=== PATIENT | male | born 1980 | race Caucasian/White ===

== ENCOUNTER 2021-11-08 15:11 | Observation (INO) | payer OTHER ==
[2021-11-08 15:33] LABS: Basophils # (A) 0.1 k/uL (0-0.2); Basophils % (A) 1 %; Eosinophils # (A) 0.3 k/uL (0-0.7); Eosinophils % (A) 2 %; HCT 50.8 % (39.0-53.0); HGB 17.3 gm/dL (13.0-17.5); Lymphocytes % (A) 17 %; MCH 31.6 pg (25.0-35.0); MCHC 34.1 g/dL (31.0-37.0); MCV 92.5 fL (80.0-100.0); Mean Platelet Volume 7.5; Monocytes # (A) 0.7 k/uL (0-1.0); Monocytes % (A) 6 %; Neutrophils # (A) 8.9 k/uL (1.3-7.7); Neutrophils % (A) 73 %; Platelet Count 361 k/uL (150-450); RBC 5.49 m/uL (4.30-5.90); RDW 13.6 % (11.5-15.5); WBC 12.1 k/uL (3.8-10.6)
--- NOTE | 2021-11-08 15:38 | ED ---
General Adult HPI - General Stated complaint: chest pain Time Seen by Provider: 11/08/21 15:13 Source: patient, RN notes reviewed, old records reviewed - History of Present Illness Initial comments: 40-year-old male presents for episode of chest pain and brief loss consciousness. Patient has history of hypertrophic cardiomyopathy. He is being followed at the [facility]. He is awaiting possible myomectomy and defibrillator placement. He is on beta blockers and losartan for blood pressure control. 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 He states he had 4 brief episodes of chest pain which were resolved at the time of EMS arrival. He states he was told that he lost consciousness briefly a few seconds only. He denies current chest pain. Denies cough or fever. - Related Data Allergies Allergy/AdvReac Type Severity Reaction Status Date / Time No Known Allergies Allergy Verified 11/08/21 16:44 Review of Systems ROS Statement: Those systems with pertinent positive or pertinent negative responses have been documented in the HPI. ROS Other: All systems not noted in ROS Statement are negative. General Exam General appearance: alert, in no apparent distress, appears intoxicated Head exam: Present: atraumatic, normocephalic Eye exam: Present: normal appearance, PERRL ENT exam: Present: normal exam Neck exam: Present: normal inspection. Absent: tenderness Respiratory exam: Present: normal lung sounds bilaterally. Absent: respiratory distress, wheezes Cardiovascular Exam: Present: regular rate, normal rhythm, systolic murmur ( pansystolic murmur) GI/Abdominal exam: Present: soft. Absent: distended, tenderness, guarding Extremities exam: Present: normal inspection, normal capillary refill. Absent: pedal edema Neurological exam: Present: alert, oriented X3, CN II-XII intact. Absent: motor sensory deficit Psychiatric exam: Present: flat affect Skin exam: Present: warm, dry, intact. Absent: cyanosis, diaphoretic Course Vital Signs 11/08/21 15:27 Temperature 98.8 F Pulse Rate 70 Respiratory 18 Rate Blood Pressure 112/73 O2 Sat by Pulse 94 L Oximetry EKG Findings - EKG Comments: EKG Findings:: EKG: Sinus rhythm, left. T-wave inversion in aVL ventricular rate 67, FL interval 200, QRS duration 106. T wave inversion in the lateral precordial leads. Medical Decision Making - Medical Decision Making 40-year-old male presenting with a brief episode of chest pain. Pain was atypical lasting just a second anterior chest pain. He then momentary loss consciousness. He does have history of hypertrophic cardiomyopathy. Patient has EKG showing ST segment elevation in V1 and V2 consistent with hypertrophic cardiomyopathy. He is chest pain-free at the time my evaluation. Workup reveals normal CBC, normal CMP, initial troponin of 0.072. He has an elevated BNP at 5000. He is given aspirin and started on heparin. I did discuss case with both the admitting physician Dr. Fuentes and loan auditor Dr. Mcmillan. Dr. Mcmillan recommends normal saline at 75 ML's per hour as well as continuing the patient's beta dwight. Echo will be obtained. Serial cardiac enzymes will be obtained. - Lab Data Result diagrams: 11/08/21 15:19 11/08/21 15:19 Lab Results 11/08/21 11/08/21 11/08/21 Range/Units 15:19 15:19 15:19 WBC 12.1 H (3.8-10.6) k/uL RBC 5.49 (4.30-5.90) m/uL Hgb 17.3 (13.0-17.5) gm/dL Hct 50.8 (39.0-53.0) % MCV 92.5 (80.0-100.0) fL MCH 31.6 (25.0-35.0) pg MCHC 34.1 (31.0-37.0) g/dL RDW 13.6 (11.5-15.5) % Plt Count 361 (150-450) k/uL MPV 7.5 Neutrophils % 73 % Lymphocytes % 17 % Monocytes % 6 % Eosinophils % 2 % Basophils % 1 % Neutrophils # 8.9 H (1.3-7.7) k/uL Lymphocytes # 2.0 (1.0-4.8) k/uL Monocytes # 0.7 (0-1.0) k/uL Eosinophils # 0.3 (0-0.7) k/uL Basophils # 0.1 (0-0.2) k/uL PT 10.7 (9.0-12.0) sec INR 1.0 (<1.2) APTT 26.4 (22.0-30.0) sec Sodium 135 L (137-145) mmol/L Potassium 4.4 (3.5-5.1) mmol/L Chloride 103 (98-107) mmol/L Carbon Dioxide 24 (22-30) mmol/L Anion Gap 8 mmol/L BUN 17 (9-20) mg/dL Creatinine 1.14 (0.66-1.25) mg/dL Est GFR (CKD-EPI)AfAm >90 (>60 ml/min/1.73 sqM) Est GFR (CKD-EPI)NonAf 82 (>60 ml/min/1.73 sqM) Glucose 158 H (74-99) mg/dL Calcium 9.3 (8.4-10.2) mg/dL Magnesium 1.7 (1.6-2.3) mg/dL Total Bilirubin 0.5 (0.2-1.3) mg/dL AST 25 (17-59) U/L ALT 18 (4-49) U/L Alkaline Phosphatase 102 (38-126) U/L Troponin I (0.000-0.034) ng/mL NT-Pro-B Natriuret Pep pg/mL Total Protein 6.8 (6.3-8.2) g/dL Albumin 3.4 L (3.5-5.0) g/dL Lipase 104 (23-300) U/L 11/08/21 11/08/21 Range/Units 15:19 15:19 WBC (3.8-10.6) k/uL RBC (4.30-5.90) m/uL Hgb (13.0-17.5) gm/dL Hct (39.0-53.0) % MCV (80.0-100.0) fL MCH (25.0-35.0) pg MCHC (31.0-37.0) g/dL RDW (11.5-15.5) % Plt Count (150-450) k/uL MPV Neutrophils % % Lymphocytes % % Monocytes % % Eosinophils % % Basophils % % Neutrophils # (1.3-7.7) k/uL Lymphocytes # (1.0-4.8) k/uL Monocytes # (0-1.0) k/uL Eosinophils # (0-0.7) k/uL Basophils # (0-0.2) k/uL PT (9.0-12.0) sec INR (<1.2) APTT (22.0-30.0) sec Sodium (137-145) mmol/L Potassium (3.5-5.1) mmol/L Chloride (98-107) mmol/L Carbon Dioxide (22-30) mmol/L Anion Gap mmol/L BUN (9-20) mg/dL Creatinine (0.66-1.25) mg/dL Est GFR (CKD-EPI)AfAm (>60 ml/min/1.73 sqM) Est GFR (CKD-EPI)NonAf (>60 ml/min/1.73 sqM) Glucose (74-99) mg/dL Calcium (8.4-10.2) mg/dL Magnesium (1.6-2.3) mg/dL Total Bilirubin (0.2-1.3) mg/dL AST (17-59) U/L ALT (4-49) U/L Alkaline Phosphatase (38-126) U/L Troponin I 0.072 H* (0.000-0.034) ng/mL NT-Pro-B Natriuret Pep 5240 pg/mL Total Protein (6.3-8.2) g/dL Albumin (3.5-5.0) g/dL Lipase (23-300) U/L Critical Care Time Total Critical Care Time: 35 Disposition Clinical Impression: Hypertrophic cardiomyopathy, Elevated troponin I level Disposition: ADMITTED IP TO THIS [facility] Condition: Stable Is patient prescribed a controlled substance at d/c from ED?: No Referrals: Nonstaff,Physician [Primary Care Provider] - 1-2 days Decision to Admit Reason: Admit from EC Decision Date: 11/08/21 Decision Time: 17:09
[2021-11-08 15:45] LABS: Partial Thromboplastin Time 26.4 sec (22.0-30.0); Prothrombin Time 10.7 sec (9.0-12.0)
[2021-11-08 15:46] LABS: ALT 18 U/L (4-49); AST 25 U/L (17-59); African American GFR (CKD) >90 (>60 ml/min/1.73 sqM); Albumin 3.4 g/dL (3.5-5.0); Alkaline Phosphatase 102 U/L (38-126); Anion Gap 8 mmol/L; Blood Urea Nitrogen 17 mg/dL (9-20); Calcium 9.3 mg/dL (8.4-10.2); Carbon Dioxide 24 mmol/L (22-30); Chloride 103 mmol/L (98-107); Glucose 158 mg/dL (74-99); Lipase 104 U/L (23-300); Magnesium 1.7 mg/dL (1.6-2.3); Non-African American GFR(CKD) 82 (>60 ml/min/1.73 sqM); Potassium 4.4 mmol/L (3.5-5.1); Sodium 135 mmol/L (137-145); Total Bilirubin 0.5 mg/dL (0.2-1.3); Total Protein 6.8 g/dL (6.3-8.2)
[2021-11-08] MEDS ORDERED: LORazepam 2 MG/ML INJ IV PRN (16:12)
[2021-11-08] MEDS ORDERED: ASPIRIN 325 MG TAB PO STA (16:39)
--- NOTE | 2021-11-08 16:40 | HP ---
HISTORY AND PHYSICAL DATE OF SERVICE: 11/08/2021 CHIEF COMPLAINT: Chest pain. HISTORY OF PRESENT ILLNESS: This 40-year-old gentleman with a past medical history of hypertrophic cardiomyopathy was undergoing rehab at [facility] for crystal meth usage. The patient is complaining of chest pain which is felt in the left side of the chest, sort of sharp to a pressure type of character. The patient was also being followed by [facility]. The patient was referred to [facility] and admitted for further evaluation and treatment. Patient is awaiting possible myomectomy and defibrillator placement also. There is no history of any fever, rigor or chills at this time. PAST MEDICAL HISTORY: Hypertrophic cardiomyopathy, crystal meth abuse. HOME MEDICATIONS: List is not available. ALLERGIES: NONE. FAMILY HISTORY: No history of heart disease or strokes in the family. SOCIAL HISTORY: History of crystal meth usage. REVIEW OF SYSTEMS: Fourteen-point review of systems negative except as mentioned earlier. PHYSICAL EXAMINATION: Pulse is 70, blood pressure 120/70, respiration 18. CHEST: Clear to auscultation. CARDIOVASCULAR: S1, S2 muffled. Ejection systolic murmur, left sternal border and apical area present. Crescendo-decrescendo. ABDOMEN: Soft, nontender. No mass palpable. NECK: No jugular venous distention. NERVOUS SYSTEM: No focal deficit. SKIN: No ulcer, rash, bleeding. JOINTS: No active deforming arthropathy. LABS: EKG: diffuse ST-T changes. WBC 12.1, sodium 135. ASSESSMENT: 1. Chest pain; rule out acute coronary syndrome. 2. Hypertrophic cardiomyopathy history. 3. Increased white count. 4. History of crystal meth usage. RECOMMENDATIONS AND DISCUSSION: In this 40-year-old gentleman who presented with multiple complex medical issues, we will monitor the patient closely, continue the current medications. Rule out myocardial infarction. Closely monitor. Consult Cardiology. Resume the home medications. Prognosis guarded. Further recommendations to follow. MMODL / IJN: [id number] /
--- NOTE | 2021-11-08 16:50 | XR ---
EXAMINATION TYPE: XR chest 2V DATE OF EXAM: 11/08/2021 4:46 PM COMPARISON:None TECHNIQUE: XR chest 2V Frontal and lateral views of the chest. CLINICAL INDICATION:Male, 40 years old with history of Chest Pain; FINDINGS: Lungs/Pleura: Low lung volumes are present. There is no evidence of pleural effusion, focal consolida tion, or pneumothorax. Pulmonary vascularity: Unremarkable. Heart/mediastinum: Cardiomediastinal silhouette is unremarkable. Musculoskeletal: No acute osseous pathology. IMPRESSION: No acute cardiopulmonary disease/process.
[2021-11-08] MEDS ORDERED: HEPARIN SODIUM 1,000 UN/ML (10ML VL) IV ONE (16:52)
[2021-11-08] MEDS ORDERED: HEPARIN SODIUM 1,000 UN/ML (10ML VL) IV PRN (16:52)
[2021-11-08] MEDS ORDERED: NALOXONE 0.4 MG/ML 1 ML VIAL IV PRN (16:58)
[2021-11-08] MEDS ORDERED: ACETAMINOPHEN TAB 325 MG TAB PO PRN (16:58)
[2021-11-08] MEDS ORDERED: HEPARIN SOD,PORK IN 0.45% NACL 25,000 UNIT in 0.45% NACL 1 250ML.BAG IV SCH (17:00)
[2021-11-08] MEDS: LORazepam 1 MG TAB PO PRN (17:49)
[2021-11-08] MEDS ORDERED: MAGNESIUM PO PRN (21:28)
[2021-11-08] MEDS ORDERED: ONDANSETRON 4 MG TAB PO PRN (21:28)
[2021-11-08] MEDS ORDERED: CALCIUM PO PRN (21:28)
[2021-11-08] MEDS ORDERED: LOPERAMIDE 2 MG CAP PO PRN (21:28)
[2021-11-08] MEDS ORDERED: CHOLECALCIFEROL PO PRN (21:28)
[2021-11-08] MEDS ORDERED: diphenhydrAMINE 25 MG CAP PO PRN (21:28)
[2021-11-08] MEDS ORDERED: ZINC PO PRN (21:28)
[2021-11-08] MEDS ORDERED: MULTIVITAMINS, THERA 1 EACH TAB PO PRN (21:28)
[2021-11-08] MEDS ORDERED: THIAMINE 100 MG TAB PO PRN (21:28)
[2021-11-08] MEDS: SODIUM CHLORIDE 0.9% 1,000 ML IV SCH (21:44)
[2021-11-09 02:06] VITALS: RESP 18
[2021-11-09] MEDS: LORazepam 1 MG TAB PO PRN ×2 (02:58→12:41)
[2021-11-09 03:45] LABS: Appearance,Urine Clear (Clear); Bilirubin,Urine Negative (Negative); Blood,Urine Negative (Negative); Color,Urine Yellow; Glucose,Urine (UA) Negative (Negative); Hyaline Casts,Urine 1 /lpf (0-2); Ketones,Urine Negative (Negative); Leukocyte Esterase,Urine Negative (Negative); Mucus,Urine Few /hpf; Nitrite,Urine Negative (Negative); PH, Urine 5.5 (5.0-8.0); Protein,Urine 2+ (Negative); RBC,Urine <1 /hpf (0-5); Specific Gravity,Urine 1.022 (1.001-1.035); Squamous Epithelial Cell,Urine <1 /hpf (0-4); Urobilinogen,Urine <2.0 mg/dL (<2.0); WBC,Urine 3 /hpf (0-5)
[2021-11-09 03:46] LABS: Amphetamine Screen,Urine Not Detected (NotDetected); Barbiturate Screen,Urine Detected (NotDetected); Benzodiazepines Screen,Urine Detected (NotDetected); Cocaine Screen,Urine Not Detected (NotDetected); Methadone Screen, Urine Not Detected (NotDetected); Opiate Screen,Urine Not Detected (NotDetected); Oxycodone Screen, Urine Not Detected (NotDetected); Phencyclidine Screen,Urine Not Detected (NotDetected); Tricyclic Antidepressant,Urine Not Detected (NotDetected); Urn Cannabinoid Scrn Not Detected (NotDetected)
[2021-11-09 06:14] VITALS: TEMP 97.8
[2021-11-09] MEDS ORDERED: LOSARTAN 50 MG TAB PO SCH (06:15)
[2021-11-09] MEDS ORDERED: ARIPiprazole 5 MG TAB PO SCH (06:15)
[2021-11-09] MEDS ORDERED: ASPIRIN 81 MG PO SCH (06:15)
[2021-11-09] MEDS ORDERED: DILTIAZEM CD 240 MG CAP.ER.24H PO SCH (06:15)
[2021-11-09] MEDS: PROPRANOLOL LA 80 MG CAP.SA.24H PO SCH ×2 (06:44→17:01)
[2021-11-09] MEDS: SODIUM CHLORIDE 0.9% 1,000 ML IV SCH (06:52)
[2021-11-09 06:57] LABS: Basophils # (A) 0.1 k/uL (0-0.2); Basophils % (A) 1 %; Eosinophils # (A) 0.3 k/uL (0-0.7); Eosinophils % (A) 3 %; HCT 49.1 % (39.0-53.0); Lymphocytes # (A) 2.6 k/uL (1.0-4.8); Lymphocytes % (A) 28 %; MCH 32.1 pg (25.0-35.0); MCHC 34.5 g/dL (31.0-37.0); Mean Platelet Volume 7.3; Monocytes # (A) 0.6 k/uL (0-1.0); Monocytes % (A) 7 %; Neutrophils # (A) 5.5 k/uL (1.3-7.7); Neutrophils % (A) 60 %; Platelet Count 296 k/uL (150-450); RBC 5.28 m/uL (4.30-5.90); RDW 13.7 % (11.5-15.5); WBC 9.2 k/uL (3.8-10.6)
[2021-11-09 07:09] LABS: Prothrombin Time 10.8 sec (9.0-12.0)
[2021-11-09 07:13] LABS: African American GFR (CKD) >90 (>60 ml/min/1.73 sqM); Anion Gap 4 mmol/L; Blood Urea Nitrogen 15 mg/dL (9-20); Carbon Dioxide 25 mmol/L (22-30); Chloride 106 mmol/L (98-107); Glucose 119 mg/dL (74-99); Non-African American GFR(CKD) 87 (>60 ml/min/1.73 sqM); Potassium 4.2 mmol/L (3.5-5.1); Sodium 135 mmol/L (137-145)
[2021-11-09] MEDS ORDERED: HEPARIN SODIUM,PORCINE/PF 5,000 UNIT/0.5 ML SYRINGE SQ SCH (09:00)
--- NOTE | 2021-11-09 09:17 | CONS ---
CONSULTATION This is a 40-year-old gentleman with a known diagnosis of hypertrophic obstructive cardiomyopathy, under the care of a firewall engineer in the [place] area. He is here for crystal meth addiction and in rehab. He came in from [place] because of an episode of chest pain. After arrival, the EMS thought that he lost consciousness for a few seconds, but this seems to be very questionable. He denies any episode of dizziness or lightheadedness or syncope. He has been seen at [facility] for hypertrophic cardiomyopathy. He is on multiple medications. He is being considered for myomectomy or defibrillator placement. He does not know his family history, but to his knowledge there is no family member with sudden . He is on multiple medications for hypertrophic cardiomyopathy. He has no chest discomfort. His loss of consciousness also is very questionable. Patient complains of discomfort in the left upper abdomen area which also seems to have resolved. He is resting comfortably. At the time of my evaluation he is quite asymptomatic. This gentleman had a complete workup through his Dr. Phelps, including an echocardiogram, and also he was seen at [facility]. He wishes to follow up with his doctor. He is asymptomatic at this time. His troponin elevation is modest and does not suggest myocardial injury. All of the numbers are flat. PAST MEDICAL HISTORY: 1. Hypertrophic cardiomyopathy. 2. History of crystal meth addiction, in [place] for rehab. ALLERGIES: NONE. MEDICATIONS: Medications at home include propranolol, Cardizem, clonidine, Lipitor, and also he takes trazodone and Zofran. PHYSICAL EXAMINATION: Blood pressure is 140/80, pulse rate is about 70 per minute, regular. HEENT unremarkable. Fundus was not examined by me. Neck is supple. There is no significant JVD. Heart exam reveals S1, S2 with a mid systolic murmur at left sternal border. Lungs are clear. Abdomen is soft, nontender. Lower extremities reveal normal pulses. No edema. Central nervous system is normal. EKG revealed sinus mechanism, LVH type picture with voltage and ST-segment changes, which also is consistent with cardiomyopathy, hypertrophic type. LABORATORY DATA: Laboratory data suggest that troponins are unremarkable at 0.07, 0.08. Renal function is normal. IMPRESSION: 1. Episode of atypical chest pain. 2. Questionable episode of loss of consciousness. 3. History of known hypertrophic cardiomyopathy, being considered for defibrillator or myomectomy. 4. Hypertension. 5. Crystal meth addiction, in rehab at [place]. RECOMMENDATIONS: I would recommend that we discontinue his IV heparin, increase activity, and he can be discharged home or to the [place] rehab on same medical regimen. No intervention is necessary. I would recommend that he should see his firewall engineer, whom he saw about 3 weeks ago, for a followup. Patient wishes to follow up there and does not wish to have any testing performed here. Patient can be discharged on current medications and follow up with his firewall engineer. Thank you very much for the consult. MMODL / IJN: [id number] /
[2021-11-09 10:43] VITALS: BMI 36.5
--- NOTE | 2021-11-09 10:46 | ECHOF ---
Referral Reason:History of hypertrophic cardiomyopathy MEASUREMENTS -------- HEIGHT: 188.0 cm WEIGHT: 128.8 kg BP: 162/75 RVIDd: 3.8 cm (< 3.3) IVSd: 2.2 cm (0.6 - 1.1) LVIDd: 4.4 cm (3.9 - 5.3) LVPWd: 2.1 cm (0.6 - 1.1) IVSs: 2.6 cm LVIDs: 3.2 cm LVPWs: 2.5 cm LA Diam: 4.9 cm (2.7 - 3.8) LAESV Index (A-L): 46.33 ml/m Ao Diam: 3.6 cm (2.0 - 3.7) AV Cusp: 2.6 cm (1.5 - 2.6) MV EXCURSION: 18.351 mm (> 18.000) MV EF SLOPE: 49 mm/s (70 - 150) EPSS: 0.4 cm MV E Real: 1.15 m/s MV DecT: 138 ms MV A Real: 0.89 m/s MV E/A Ratio: 1.30 AV maxP.90 mmHg AV meanP.62 mmHg RAP: 5.00 mmHg RVSP: 33.03 mmHg FINDINGS -------- Sinus rhythm. This was a technically adequate study. The left ventricular size is normal. There is severe concentric left ventricular hypertrophy. Ove rall left ventricular systolic function is normal with, an EF between 55 - 60 %. Moderate NITO with peak LVOT gradient of 67.10mmHg. LVOT Obstruction with max gradient of 67 mm/Hg and mean gradient o f 33 mm/Hg The right ventricle is mild to moderately enlarged. LA is severely dilated >40 ml/m2 The right atrial size is normal. The aortic valve is trileaflet, and appears structurally normal. No aortic stenosis or regurgitation. The mitral valve is normal. [id number] mitral regurgitation is present. Mild tricuspid regurgitation present. Right ventricular systolic pressure is normal at < 35 mmHg. The right ventricular systolic pressure, as measured by Doppler, is 33.03mmHg. The pulmonic valve was not well visualized. There is no pulmonic regurgitation present. The aortic root size is normal. IVC Not well visulized. There is no pericardial effusion. CONCLUSIONS -------- 1. There is severe concentric left ventricular hypertrophy. 2. Overall left ventricular systolic function is normal with, an EF between 55 - 60 %. 3. Moderate NITO with peak LVOT gradient of 67.10mmHg. 4. LVOT Obstruction with max gradient of 67 mm/Hg and mean gradient of 33 mm/Hg 5. The right ventricle is mild to moderately enlarged. 6. LA is severely dilated >40 ml/m2 7. The aortic valve is trileaflet, and appears structurally normal. No aortic stenosis or regurgitati on. 8. Fojw-gz-qgbmbwga mitral regurgitation is present. 9. Mild tricuspid regurgitation present. 10. There is no pericardial effusion. POLISHER NUMERAL: Rachel Willingham RDCS
--- NOTE | 2021-11-09 15:18 | P.DS ---
Providers Date of admission: 11/08/21 17:13 Attending physician: Jaymie Fuentes Consults: 11/08/21 16:59 Consult Physician Urgent Consulting Provider: Nafisa Mcmillan Consult Reason/Comments: Hypertrophic cardiomyopathy, chest pain, syncope Do you want consulting provider notified?: Already Contacted Primary care physician: Physician Nonstaff Hospital Course: Final Diagnosis Chest pain, atypical, ACS has been ruled out Questionable episode of loss of consciousness Hypertrophic cardiomyopathy, history of Leukocytosis, resolved history of crystal meth usage currently at [facility] Hypertension Hyperlipidemia Anxiety/depression Obesity History of sleep apnea does not use a CPAP Discharge disposition Patient is cleared medically for discharge back to [facility] cleared by cardiology services. Hospital course This is a 40-year-old male with past medical history significant for hypertension, hyperlipidemia, hypertrophic cardiomyopathy, history of crystal meth use that presents to the with complaints of chest pain as well as a brief loss of consciousness. Patient is currently at [facility] for methamphetamine abuse and had about 4 episodes of chest pain which resolved by the time the EMS arrived. Patient currently follows at [facility] and is awaiting a possible myomectomy and possible defibrilator placement. Follows with Dr Phelps out of [place]. Patient was evaluated by cardiology services since admission. Echocardiogram completed shows severe concentric left ventricular hypertrophy, EF of 55-60%, Left atrium is severely dilated, eegi-tk-awwjgvwa mitral regurgitation, mild tricuspid regurgitation and there is no pericardial effusion present. Chest x-ray shows no acute cardiopulmonary disease. Labs on admission show white count 12.1, sodium 135, potassium 4.4, BUN 17, creatinine 1.14, glucose 158, magnesium 1.7, troponin elevation at 0.072, 0.086, 0.084, BNP 5240. Urinalysis negative for infection, urine drug toxicology positive for barbiturates and benzodiazepines. Patient's been afebrile, heart rate 76 normal sinus rhythm, blood pressure 128/77, 95% on room air. 11/09/2021 Patient evaluated today resting bed. Currently denies any chest pain, chest pressure, palpitations, cough, shortness of breath. There is no dizziness or lightheadedness. Denies headache. Denies nausea vomiting diarrhea. Does admit to some mild shortness of breath worse with exertion. Patient is maintaining oxygen saturation on room air lungs are clear to auscultation with a negative chest x-ray. S1 and S2 auscultated, patient does have a heart murmur, lungs are clear, positive bowel sounds. abdomen is soft and non tender, focal neurological exam is negative. White blood cell count today improved 9.2, sodium 137 potassium 4.2, blood glucose 119. Patient cleared by cardiology to follow-up with his PCP and alarm installer. Continue all current medications no medications were adjusted this hospital stay. Patient cleared medically for discharge back to [facility] who will arrange for transport. Please see medication reconciliation for a list of current medications. Thank you for allowing us to participate in the care of this patient. Patient Condition at Discharge: Stable Plan - Discharge Summary Discharge Rx Participant: Yes New Discharge Prescriptions: Continue Acetaminophen Tab [Tylenol] 650 mg PO TID PRN PRN Reason: Pain Or Fever > 100.5 ARIPiprazole 5 mg PO DAILY@0615 Atorvastatin [Lipitor] 80 mg PO HS@2100 Chlorpheniramine Maleate 4 mg PO Q4H PRN PRN Reason: runny nose/allergies cloNIDine HCL [Catapres] 0.1 - 0.3 mg PO Q4H PRN PRN Reason: Hypertension Diltiazem HCl [Diltiazem HCl 24Hr ER] 240 mg PO DAILY@0615 Thiamine HCl [Vitamin B-1] 100 mg PO DAILY PRN PRN Reason: supplement traZODone HCL 300 mg PO HS@2100 Calcium, Magnesium, Zinc, With Vit D 1 tab PO TID PRN PRN Reason: withdrawl symptoms Aspirin EC [Ecotrin Low Dose] 162 mg PO DAILY@0615 Loperamide HCl [Imodium A-D] 4 mg PO QID PRN PRN Reason: Diarrhea Losartan Potassium [Cozaar] 50 mg PO DAILY@0615 Multivitamins, Thera [Multivitamin (formulary)] 1 tab PO DAILY PRN PRN Reason: vitamin ondansetron HCL [Zofran] 8 mg PO Q6H PRN PRN Reason: Nausea Propranolol HCl [Propranolol HCl ER] 160 mg PO BID@0615,1630 Discharge Medication List ARIPiprazole 5 mg PO DAILY@0615 11/08/21 [History] Acetaminophen Tab [Tylenol] 650 mg PO TID PRN 11/08/21 [History] Aspirin EC [Ecotrin Low Dose] 162 mg PO DAILY@0615 02/22/22 [History] Atorvastatin [Lipitor] 80 mg PO HS@209911/08/21 [History] Calcium, Magnesium, Zinc, With Vit D 1 tab PO TID PRN 11/08/21 [History] Chlorpheniramine Maleate 4 mg PO Q4H PRN 11/08/21 [History] Diltiazem HCl [Diltiazem HCl 24Hr ER] 240 mg PO DAILY@61411/08/21 [History] Loperamide HCl [Imodium A-D] 4 mg PO QID PRN 11/08/21 [History] Losartan Potassium [Cozaar] 50 mg PO DAILY@61411/08/21 [History] Multivitamins, Thera [Multivitamin (formulary)] 1 tab PO DAILY PRN 11/08/21 [History] Propranolol HCl [Propranolol HCl ER] 160 mg PO BID@0615,1630 11/08/21 [History] Thiamine HCl [Vitamin B-1] 100 mg PO DAILY PRN 11/08/21 [History] cloNIDine HCL [Catapres] 0.1 - 0.3 mg PO Q4H PRN 11/08/21 [History] ondansetron HCL [Zofran] 8 mg PO Q6H PRN 11/08/21 [History] traZODone HCL 300 mg PO HS@209911/08/21 [History] Follow up Appointment(s)/Referral(s): Nonstaff,Physician [Primary Care Provider] - 11/16/21 2:45 pm (Dr. Mica Og- family physician- [phone]) Frandy Phelps MD [REFERRING] - 1 Week Activity/Diet/Wound Care/Special Instructions: [facility] [phone] Add patients home pysician and cariologist to discharge Discharge Disposition: OTHER INSTITUTION NOT DEFINED
[2021-11-09 15:54] VITALS: BP 125/81; PULSE 72
[2021-11-09] MEDS ORDERED: ATORVASTATIN 40 MG TAB PO SCH (21:00)
[2021-11-09] MEDS ORDERED: traZODone HCL 100 MG TAB PO SCH (21:00)
[2021-11-09] MEDS ORDERED: ATORVASTATIN 80 MG TAB PO SCH (21:00)
[2021-11-10] MEDS ORDERED: ASPIRIN 81 MG PO SCH (09:00)
== END 2021-11-09 19:47 | disposition other institution (70) ==
LOC: EC 15:11 → 3SCARD 17:13
PROVIDERS: ADMIT Hospitalist; ATTEND Hospitalist
DX: R07.89 Other chest pain (principal); I42.1 Obstructive hypertrophic cardiomyopathy; D72.829 Elevated white blood cell count, unspecified; I11.9 Hypertensive heart disease without heart failure; I08.1 Rheumatic disorders of both mitral and tricuspid valves; F15.20 Other stimulant dependence, uncomplicated; E78.5 Hyperlipidemia, unspecified; R55 Syncope and collapse; R77.8 Other specified abnormalities of plasma proteins; R06.02 Shortness of breath; E66.9 Obesity, unspecified; Z68.36 Body mass index [BMI] 36.0-36.9, adult; F32.A Depression, unspecified; F41.9 Anxiety disorder, unspecified; G47.30 Sleep apnea, unspecified
CPT/HCPCS: 99285; 96376 ×2; 96366 ×2; 96372; 96365; 36415; 93005; 93306; 83880; 80053; 80048; 83690; 83735; 84484; 85025 ×2; 85610 ×2; 85730 ×2; 81001; 80306; 71046; G0378 ×2; J1644 ×4